=== PATIENT | female | born 2000 | race Two or more races ===

== ENCOUNTER 2025-02-18 08:19 | Emergency (ER) | payer OTHER ==
[~2025-02-18] VITALS: Ht 124.5 cm; Wt 61.7 kg
[2025-02-18] MEDS ORDERED: SEROQUEL50 MG (08:45)
[2025-02-18] MEDS ORDERED: TOPAMAX25 MG PO (08:45)
[2025-02-18] MEDS ORDERED: VISTARIL50 MG/ML (08:45)
[2025-02-18] MEDS ORDERED: PEPCID AC10 MG (08:46)
[2025-02-18] MEDS ORDERED: PROPRANOLOL HCL10 MG (08:46)
[2025-02-18] MEDS ORDERED: COLACE100 MG (08:46)
[2025-02-18] MEDS ORDERED: 0.9 % SODIUM CHLORIDE 1,000 ML IV ONE (09:15)
[2025-02-18] MEDS ORDERED: FAMOtidine 10 MG/ML (4ML VIAL) IV ONE (09:15)
[2025-02-18] MEDS ORDERED: MORPHINE SULFATE 4 MG/ML VIAL IV ONE (09:15)
[2025-02-18 09:41] LABS: BASO % 0.3 % (0.1-1.2); EOS # 0.04 (0.04-0.54); EOS % 0.4 % (0.7-7.0); LYMPH # 1.28 (1.18-3.74); LYMPH % 12.7 % (19.3-53.1); MEAN PLATELET VOLUME 9.20 fl (9.4-12.4); MONO # 0.47 (0.24-0.82); MONO % 4.7 % (4.7-12.5); NEUT # 8.19 (1.56-6.13); NEUT % 81.6 % (34.0-71.1); RED CELL DISTRIBUTION WIDTH 16.4 % (11.6-14.4)
[2025-02-18 10:09] LABS: INR 2.01
[2025-02-18 10:23] LABS: URINE APPEARANCE Clear; URINE BILIRRUBIN Negative (NEGATIVE); URINE BLOOD Large; URINE COLOR Yellow; URINE GLUCOSE Negative (NEGATIVE); URINE KETONE Trace (NEGATIVE); URINE LEUKOCYTE Negative; URINE NITRATE Negative; URINE PROTEIN Trace (NEGATIVE); URINE UROBILINOGEN 0.2 E.U./dl
[2025-02-18 10:24] LABS: URINE BACTERIA 602.4 uL (0.0-1933); URINE EPITHELIAL CELLS 18.7 uL (0.0-38.8); URINE RBC 223.8 uL (0.0-20.8); URINE WBC 9.8 uL (0.0-23.2)
[2025-02-18 10:24] LABS: ALT/SGPT 20 U/L (12-78); AST/SGOT 18 U/L (15-37); BILIRUBIN TOTAL 0.34 mg/dL (0.3-1.2); BUN CREA RATIO 18 (7.0-25.0); CREATININE SERUM 0.97 mg/dL (0.55-1.02); GFR 70.55; GLOBULINA 3.7 G/DL (2.4-3.5); GLUCOSE FASTING 108 mg/dL (65-100); OSMOLALITY SERUM 287 MOSM/KG (275-295)
[2025-02-18 10:26] LABS: URINE CAST 0.00 uL (0.0-1.40)
[2025-02-18] MEDS ORDERED: ONDANSETRON HCL 2 MG/ML VIAL IV ONE (10:30)
[2025-02-18 10:35] LABS: HCG QUANTITATIVE < 1 mUI/mL (1-3)
[2025-02-18] MEDS ORDERED: MORPHINE SULFATE 4 MG/ML CARTRIDGE IV STA (11:41)
[2025-02-18] MEDS ORDERED: TAMSULOSIN HCL 0.4 MG CAP PO ONE (12:30)
[2025-02-18] MEDS ORDERED: BACTRIM DS TAB1 EACH PO (12:33)
[2025-02-18] MEDS ORDERED: NORFLEX100MG PO (12:33)
[2025-02-18] MEDS ORDERED: TAMS0.4C PO (12:33)
[2025-02-18] MEDS ORDERED: PEPCID AC20 MG PO (12:33)
== END 2025-02-18 12:44 | disposition home or self-care (01) ==
LOC: ER 08:19
PROVIDERS: General Practice
DX: R10.31 Right lower quadrant pain (principal); N20.2 Calculus of kidney with calculus of ureter; N83.202 Unspecified ovarian cyst, left side; Z88.8 Allergy status to other drugs, medicaments and biological substances